=== PATIENT | female | born 1985 | race African-American/Black ===

== ENCOUNTER 2020-12-10 06:25 | Emergency (ER) | payer SELFPAY ==
[~2020-12-10] VITALS: Ht 157.5 cm; Wt 72.7 kg
[2020-12-10] MEDS ORDERED: CIPR500T94 PO (06:57)
--- NOTE | 2020-12-10 06:58 | PHYS DOC ---
Past Medical History Past Medical History: Anxiety, Depression, Other Additional Past Medical Histor: PTSD Past Surgical History: No Surgical History Smoking Status: Current Every Day Smoker Alcohol Use: None General Adult EDM: Chief Complaint: FOOT INJURY PAIN HPI: HPI: This is a pleasant 35-year-old female presenting the emergency department today with pain in the bottom of her left foot near the heel. She has developed some numbness around an area where she had stepped on a piece of glass on morning. She reports pulling the glass out of her foot. She has had worsening pain and is having trouble putting weight on it. She denies any redness or rash. She denies any fevers or drainage. The pain is sharp shooting worse with walking. moderate. Review of systems is negative for fevers chills rash. Negative for nausea vomiting. She denies any other traumatic injuries. All other review of systems negative. ED course: 35-year-old female presenting after stepping on a piece of glass. X- rays here are unremarkable. Since the patient is feeling the sensation it is possible that she still has glass and we does not think it on the x-ray. Because of this we will refer her to podiatry on Saturday for evaluation. In the interim I will start the patient on an oral antibiotic to try and prevent infection. She is to return for worsening pain or any other concerns. Heart Score: Risk Factors: Risk Factors: DM, Current or recent (<one month) smoker, HTN, HLP, family history of CAD, obesity. Risk Scores: Score 0 - 3: 2.5% MACE over next 6 weeks - Discharge Home Score 4 - 6: 20.3% MACE over next 6 weeks - Admit for Clinical Observation Score 7 - 10: 72.7% MACE over next 6 weeks - Early Invasive Strategies Allergies: Allergies: Allergies Coded Allergies Type Severity Reaction Last Updated Verified No Known Drug Allergies 12/10/20 No Physical Exam: PE: Constitutional: Well developed, well nourished, no acute distress, non-toxic appearance. [] HENT: Normocephalic, atraumatic, bilateral external ears normal, oropharynx moist, no oral exudates, nose normal. [] Eyes: PERRLA, EOMI, conjunctiva normal, no discharge. [] Neck: Normal range of motion, no tenderness, supple, no stridor. [] Cardiovascular:Heart rate regular rhythm, no murmur [] Lungs & Thorax: Bilateral breath sounds clear to auscultation [] Abdomen: Bowel sounds normal, soft, no tenderness, no masses, no pulsatile masses. [] Skin: Warm, dry, no erythema, no rash. [] Back: No tenderness, no CVA tenderness. [] Extremities: The patient's left lower extremity has a healing wound on the bottom of the heel. There is no drainage. She reports that she has sensation loss about 1 cm around the wound and is also tender to palpation. Otherwise she remains to have normal sensation in the remaining of the foot. She has a palpable DP pulse. 2-second cap refill in the toes. Normal motor and sensory function of the foot otherwise. Compartments of the foot and calf are soft. Nontender ankle. Nontender extremities otherwise without any pain with normal range of motion of the joints and neurovascular intact. Neurologic: Alert and oriented X 3, normal motor function, normal sensory function, no focal deficits noted. [] Psychologic: Affect normal, judgement normal, mood normal. [] Current Patient Data: Vital Signs: Vital Signs Date Time Temp Pulse Resp B/P (MAP) Pulse Ox O2 Delivery O2 Flow Rate FiO2 12/10/20 06:26 98.0 102 20 141/85 (103) 97 Room Air 98.0 EKG: EKG: [] Radiology/Procedures: Radiology/Procedures: [] Course & Med Decision Making: Course & Med Decision Making Pertinent Labs and Imaging studies reviewed. (See chart for details) [] Dragon Disclaimer: Dragon Disclaimer: This electronic medical record was generated, in whole or in part, using a voice recognition dictation system. Departure Departure Impression: Primary Impression: Injury of foot Additional Impression: Injury of foot, left Disposition: 01 DC HOME SELF CARE/HOMELESS Condition: STABLE Referrals: INDY ROBERTS DPM on saturdayDec 12. Call and make and appt Patient Instructions: Abrasions Scripts Ciprofloxacin Hcl (CIPRO) 500 Mg Tablet 1 TAB PO BID for 7 Days, #14 TAB 0 Refills Prov: CANDELARIO BOSCH MD 12/10/20 CANDELARIO BOSCH MD Dec 10, 2020 06:58
[2020-12-10] MEDS ORDERED: DIPH,PERTUSS(ACELL),TET VAC/PF 0.5 ML SYRINGE. VAX IM ONE (07:00)
[2020-12-10] MEDS ORDERED: ACETAMINOPHEN 325 MG TABLET. PO ONE (07:15)
--- NOTE | 2020-12-10 07:53 | RAD ---
XR FOOT_LEFT 3 VIEWS History: Reason: stepped on glass in heel of left foot x2 days ago / Spl. Instructions: / History: Technique: 3 views left foot. Comparison: None. Findings: Normal alignment. No fracture. No radiopaque foreign body. Mild midfoot DJD. Impression: 1. No radiopaque foreign body. Electronically signed by: Javed Pimenetl DO (12/10/2020 7:50 AM) [id number]
[2020-12-10 09:30] VITALS: BP 122/77
== END 2020-12-10 09:41 | disposition home or self-care (01) ==
LOC: ER 06:25
DX: S99.922A Unspecified injury of left foot, initial encounter (principal); F17.200 Nicotine dependence, unspecified, uncomplicated; W22.8XXA Striking against or struck by other objects, initial encounter; Y93.89 Activity, other specified; Y92.89 Other specified places as the place of occurrence of the external cause; Y99.8 Other external cause status
CPT/HCPCS: 73630; 90471; 90715; 99283-25